=== PATIENT | female | born 1995 | race Caucasian/White ===

== ENCOUNTER 2022-10-08 21:39 | Emergency (ER) | payer OTHER ==
[2022-10-08] MEDS ORDERED: Ibuprofen 200 MG TAB ONE (22:35)
== END 2022-10-08 23:30 | disposition home or self-care (01) ==
LOC: CSHERS 21:39
DX: M79.671 Pain in right foot (principal); W22.8XXA Striking against or struck by other objects, initial encounter; Y93.01 Activity, walking, marching and hiking

== ENCOUNTER 2023-10-13 09:55 | Outpatient (CLI) | payer BC, OTHER ==
[2023-10-13 11:31] LABS: Bilirubin Neg (Negative); Blood, Urine Negative (Negative); Clarity Slightly Cloudy (Clear); Glucose, Urine (Dipstick) Normal (Negative); Ketone, Urine 5 mg/dL (Negative); Leukocyte 25 (Negative); Nitrite Negative (Negative); Protein, Urine (Dipstick) Negative (Neg-Trace); Urobilinogen Normal mg/dL (Less than 2); pH, Urine 6.5 (5.0-9.0)
[2023-10-13 11:49] LABS: Hematocrit 41.2 % (34.9-44.5); Hemoglobin 13.4 g/dL (12.0-15.5); Mean Corpuscular HGB CONC 32.5 g/dL (32.0-36.0); Mean Corpuscular Hemoglobin 28.5 pg (27.0-33.0); Mean Corpuscular Volume 87.5 fl (81.6-98.3); Mean Platelet Volume 10.3 fl (7.4-10.4); Platelet Count 313 10x3/uL (150-450); RBC Distribution Width 13.5 % (11.5-14.5); Red Blood Cell (RBC) Count 4.71 10x6/uL (3.90-5.03); White Blood Cell (WBC) Count 6.8 10x3/uL (3.5-10.5)
[2023-10-13 11:51] LABS: BHCG - Serum Negative (NEGATIVE); Pregs Control Background? CLEAR/WHITE (CLR/WHITE); Pregs Control Bar Appear? YES (CONTROL BAR)
== END 2023-10-13 09:56 | disposition home or self-care (01) ==
LOC: CSHLAB 09:55
PROVIDERS: ATTEND Obstetrics & Gynecology
DX: Z01.812 Encounter for preprocedural laboratory examination (principal); N87.1 Moderate cervical dysplasia; R87.810 Cervical high risk human papillomavirus (HPV) DNA test positive
CPT/HCPCS: 81003; 84703; 85027

== ENCOUNTER 2023-10-16 05:34 | Day surgery (SDC) | payer BC ==
[2023-10-13 10:59] VITALS: BMI 33.6
[2023-10-16] MEDS ORDERED: Ferric Subsulfate 8 ML TOPICAL SOLN ONE (06:30)
[2023-10-16] MEDS ORDERED: Dexmedetomidine 200 MCG/2 ML VIAL ONE (06:32)
[2023-10-16] MEDS ORDERED: Midazolam HCl 2 mg/2 ml Vial ONE (06:37)
[2023-10-16] MEDS ORDERED: PROPOFOL 20 ML ONE ×2 (06:37→07:19)
[2023-10-16] MEDS ORDERED: fentaNYL 50 mcg/mL 1 mL Vial ONE (06:37)
[2023-10-16] MEDS ORDERED: Dexamethasone 20 MG/5 ML VIAL ONE (06:37)
[2023-10-16] MEDS ORDERED: Ondansetron PF 4 MG/2 ML Vial ONE (06:37)
[2023-10-16] MEDS ORDERED: Ketorolac Tromethamine 30 MG (1 mL) VIAL ONE ×2 (06:37)
[2023-10-16] MEDS ORDERED: Glycopyrrolate 0.2 MG/ML 5 ML SYRINGE ONE (06:37)
[2023-10-16] MEDS ORDERED: Lidocaine 1% PF 5 ML VIAL ONE (06:37)
[2023-10-16] MEDS ORDERED: Sevoflurane 250 ML INH ANEST BOTTLE ONE (06:41)
[2023-10-16] MEDS ORDERED: CEFAZOLIN 2 GM VIAL ONE (06:43)
== END 2023-10-16 09:20 | disposition home or self-care (01) ==
LOC: CSHSDC 05:34
PROVIDERS: ATTEND Obstetrics & Gynecology
PROC: 0UBC7ZZ Excision of Cervix, Via Natural or Artificial Opening (ICD-10-PCS; principal; 2023-10-16)
DX: N87.1 Moderate cervical dysplasia (principal); R87.810 Cervical high risk human papillomavirus (HPV) DNA test positive; F41.9 Anxiety disorder, unspecified; Z88.0 Allergy status to penicillin; Z79.899 Other long term (current) drug therapy
CPT/HCPCS: 88307; 88341; 88342; J1100; J1885; J2250; J2405; J2704; J3010